=== PATIENT | male | born 1960 | race Caucasian/White ===

== ENCOUNTER 2017-12-07 15:45 | Emergency (ER) | payer OTHER ==
[~2017-12-07] VITALS: Ht 165.1 cm; Wt 59.9 kg
[2017-12-07 15:52] VITALS: BP 130/81
== END 2017-12-07 18:56 | disposition left against medical advice (07) ==
LOC: ER 15:51
DX: M79.604 Pain in right leg (principal); Z53.21 Procedure and treatment not carried out due to patient leaving prior to being seen by health care provider

== ENCOUNTER 2023-12-14 02:56 | Emergency (ER) | payer OTHER ==
[~2023-12-14] VITALS: Ht 167.6 cm; Wt 81.0 kg
[2023-12-14 02:56] VITALS: BP 194/105; RESP 16; O2SAT 96
[2023-12-14 03:09] VITALS: PULSE 87
== END 2023-12-14 08:17 | disposition left against medical advice (07) ==
LOC: EDBD 02:56 → ER 02:56
DX: S00.81XA Abrasion of other part of head, initial encounter (principal); F10.129 Alcohol abuse with intoxication, unspecified; Z88.6 Allergy status to analgesic agent; Z88.8 Allergy status to other drugs, medicaments and biological substances; Z79.899 Other long term (current) drug therapy; W18.39XA Other fall on same level, initial encounter; Y93.89 Activity, other specified; Y92.89 Other specified places as the place of occurrence of the external cause; Y99.8 Other external cause status; Y90.8 Blood alcohol level of 240 mg/100 ml or more
CPT/HCPCS: 70450; 70486; 72125; 93005

== ENCOUNTER 2025-03-19 17:04 | Inpatient (IN) | payer OTHER ==
[~2025-03-19] VITALS: Ht 165.1 cm; Wt 67.2 kg
[2025-03-19 18:09] LABS: Basophils # (auto) 0 10 ^3/uL (0-0.2); Basophils % (auto) 0.5 % (0.0-2.0); Eosinophils # (auto) 0.1 10 ^3/uL (0-0.8); Eosinophils % (auto) 1.5 % (0.0-7.0); Hematocrit 46.7 % (41.0-53.0); Hemoglobin 16.2 g/dL (13.5-17.5); Lymphocytes # (auto) 2.2 10 ^3/uL (0.4-5.4); Lymphocytes % (auto) 31.5 % (10.0-50.0); Mean Corpuscular Hemoglobin 33.1 pg (28.0-32.0); Mean Corpuscular Hgb Conc. 34.6 g/dL (32.0-36.0); Mean Corpuscular Volume 95.6 fL (80.0-100.0); Monocytes # (auto) 0.5 10 ^3/uL (0-1.3); Monocytes % (auto) 7.4 % (0.0-12.0); Neutrophils # (auto) 4.1 10 ^3/uL (1.6-8.6); Neutrophils % (auto) 59.1 % (37.0-80.0); Nucleated Red Blood Cells % 0.1 %; Platelet Count (auto) 263 10^3/uL (140-450); Red Blood Cells 4.89 10^6/uL (4.5-5.90); Red Cell Distribution Width 13.7 % (11.8-14.3); White Blood Cell 6.9 10^3/uL (4.4-10.8)
[2025-03-19 18:15] LABS: Alkaline Phosphatase 94 U/L (46-116); Anion Gap 10 (5-15); Aspartate Aminotransferase 23 U/L (13-40); BUN/Creatinine Ratio 9.3 (10.0-20.0); Blood Alcohol 241.5 mg/dL (<10); Blood Urea Nitrogen 10 mg/dL (9-23); Calcium 9.5 mg/dL (8.7-10.4); Carbon Dioxide 23 mmol/L (20-31); Sodium 141 mmol/L (136-145); Total Protein 7.4 g/dL (5.7-8.2)
--- NOTE | 2025-03-19 18:21 | DVH ---
CHEST RADIOGRAPH Indication: cp Technique: Single frontal view of the chest was obtained Comparison: None FINDINGS: Lungs: No focal consolidation. Pleura: No effusion. No pneumothorax. Cardiomediastinal contours: Unremarkable Bones: No acute osseous abnormality. IMPRESSION: 1. No acute cardiopulmonary disease.
[2025-03-19 18:31] LABS: Alanine Aminotransferase 40 U/L (7-40); Albumin 4.8 g/dL (3.2-4.8); Bilirubin, Total 0.3 mg/dL (0.2-1.0); Chloride 108 mmol/L (98-107); Glucose 120 mg/dL (74-106); Potassium 3.3 mmol/L (3.5-5.1)
--- NOTE | 2025-03-19 18:52 | ED.PDOC ---
HPI Comments 64-year-old male with a history of hypertension, dyslipidemia, chronic back pain and tobacco use brought in by EMS complaining of chest pain intermittently. Patient can not state how long the chest pain has been going on, but he acknowledges that it has been present intermittently at least all day today. Pain is described as pressure-like, constant, localized to the retrosternal area. He denies any associated nausea, vomiting, diaphoresis or edema. He does state he is chronically short of breath. He states paramedics gave him p.o. aspirin, which relieved the pain. Chief Complaint: Chest Pain Time Seen by MD: 18:30 Primary Care Provider: UNKNOWN Reviewed Notes: Nurses Notes, Tin Plater Notes, Medications, Allergies Allergies: Coded Allergies: Ibuprofen (Verified Allergy, Unknown, 12/07/17) Naproxen (Verified Allergy, Unknown, 12/07/17) Information Source: Patient Mode of Arrival: EMS Severity: Moderate Timing: Hours Duration: Since onset, Hours Prehospital treatment: None Location: Chest (L) Radiation: No Radiation Quality: Aching Onset: At Rest Cardiac Risk Factors: Smoker, Hyperlipidemia, HTN PE Risk Factors: None History of: None Associated Signs and Symptoms: None Past Medical History PAST MEDICAL HISTORY: COPD, High Lipids, HTN Surgical History: Denies all surgeries Family History Family History: Reviewed,noncontributory to illness, Unknown Social History Smoker: Cigarettes Alcohol: Denies ETOH Use Drugs: Denies Drug Use Lives In: Home Constitutional: denies: chills, diaphoresis, fatigue, fever, malaise, sweats, weakness, others EENTM: denies: blurred vision, double vision, ear bleeding, ear discharge, ear drainage, ear pain, ear ringing, eye pain, eye redness, hearing loss, mouth pain, mouth swelling, nasal discharge, nose bleeding, nose congestion, nose pain, photophobia, tearing, throat pain, throat swelling, voice changes, others Respiratory: denies: cough, hemoptysis, orthopnea, SOB at rest, shortness of breath, SOB with excertion, stridor, wheezing, others Cardiovascular: reports: chest pain; denies: dizzy spells, diaphoresis, Dyspnea on exertion, edema, irregular heart beat, left arm pain, lightheadedness, palpitations, PND, syncope, others Gastrointestinal: denies: abdomen distended, abdominal pain, blood streaked bowels, constipated, diarrhea, dysphagia, difficulty swallowing, hematemesis, melena, nausea, poor appetite, poor fluid intake, rectal bleeding, rectal pain, vomiting, others Genitourinary: denies: burning, dysuria, flank pain, frequency, hematuria, incontinence, penile discharge, penile sore, pain, testicle pain, testicle swelling, urgency, others Neurological: denies: dizziness, fainting, headache, left sided numbness, left sided weakness, numbness, paresthesia, pre-existing deficit, right sided numbness, right sided weakness, seizure, speech problems, tingling, tremors, weakness, others Musculoskeletal: denies: back pain, gout, joint pain, joint swelling, muscle pain, muscle stiffness, neck pain, others Integumetry: denies: bruises, change in color, change in hair/nails, dryness, laceration, lesions, lumps, rash, wounds, others Allergic/Immunocompromised: denies: Difficulty Healing, Frequent Infections, Hives, Itching, others Hematologic/Lymphatic: denies: anemia, blood clots, easy bleeding, easy bruising, swollen glands, others Endocrine: denies: excessive hunger, excessive sweating, excessive thirst, excessive urination, flushing, intolerance to cold, intolerance to heat, unexplained weight gain, unexplained weight loss, others Psychiatric: denies: anxiety, bipolar disorder, depression, hopeless, panic disorder, schizophrenia, sleepless, suicidal, others All Other Systems: Reviewed and Negative Physical Exam General Appearance: No Apparent Distress HEENT: Other (Pupils and face symmetric. Moist mucous membranes.) Neck: Full Range of Motion, Normal Inspection Respiratory: Lungs Clear, No Accessory Muscle Use, No Respiratory Distress, Normal Breath Sounds Cardiovascular: No Edema, No JVD, Regular Rate/Rhythm Breast Exam: Deferred Gastrointestinal: Non Tender, Soft Genitalia: Deferred Pelvic: Deferred Rectal: Deferred Extremities: Normal inspection, Normal range of motion, Non-tender, No pedal edema Musculoskeletal : Apperance: Normal Neurologic: Alert (Oriented x4), Normal Affect, Normal Mood, Other (Ambulatory without difficulty) Cerebellar Function: NOT DONE Reflexes: NOT DONE Skin: Dry, Normal Color, Warm Lymphatic: NOT DONE EKG EKG : Comments Sinus rhythm, rate 97, normal intervals, normal axis, normal QRS, nonspecific T changes. Was a procedure done? Was a procedure done?: No CP Differential Dx Differential Diagnosis: Angina, Anxiety / Panic Attack, Heart Failure, NE, Pulmonary Embolus Differential Diagnosis: Aortic dissection, Chest Wall Pain, Esophageal reflux/spasm, Gastritis, Pericarditis, Pneumonia, Pneumothorax X-Ray, Labs, Meds, VS Vital Signs Date Time Temp Pulse Resp B/P (MAP) Pulse Ox O2 Delivery O2 Flow Rate FiO2 03/19/25 23:32 97.3 74 14 165/99 (121) 92 97.3 03/19/25 19:40 98.2 84 14 160/88 (112) 92 98.2 03/19/25 17:09 97 03/19/25 17:05 97.8 100 20 152/101 (118) 98 97.8 Lab Test 03/19/25 18:14 03/19/25 17:17 Range/Units Troponin I High Sensitivity 7 6 </=54 ng/L White Blood Count 6.9 4.4-10.8 10^3/uL Red Blood Count 4.89 4.5-5.90 10^6/uL Hemoglobin 16.2 13.5-17.5 g/dL Hematocrit 46.7 41.0-53.0 % Mean Corpuscular Volume 95.6 80.0-100.0 fL Mean Corpuscular Hemoglobin 33.1 H 28.0-32.0 pg Mean Corpuscular Hemoglobin Concent 34.6 32.0-36.0 g/dL Red Cell Distribution Width 13.7 11.8-14.3 % Platelet Count 263 140-450 10^3/uL Mean Platelet Volume 8.1 6.9-10.8 fL Neutrophils (%) (Auto) 59.1 37.0-80.0 % Lymphocytes (%) (Auto) 31.5 10.0-50.0 % Monocytes (%) (Auto) 7.4 0.0-12.0 % Eosinophils (%) (Auto) 1.5 0.0-7.0 % Basophils (%) (Auto) 0.5 0.0-2.0 % Neutrophils # (Auto) 4.1 1.6-8.6 10 ^3/uL Lymphocytes # (Auto) 2.2 0.4-5.4 10 ^3/uL Monocytes # (Auto) 0.5 0-1.3 10 ^3/uL Eosinophils # (Auto) 0.1 0-0.8 10 ^3/uL Basophils # (Auto) 0 0-0.2 10 ^3/uL Nucleated Red Blood Cells 0.1 % Sodium Level 141 136-145 mmol/L Potassium Level 3.3 L 3.5-5.1 mmol/L Chloride Level 108 H 98-107 mmol/L Carbon Dioxide Level 23 20-31 mmol/L Anion Gap 10 5-15 Blood Urea Nitrogen 10 9-23 mg/dL Creatinine 1.07 0.700-1.30 mg/dL Glomerular Filtration Rate Calc 77 >90 mL/min BUN/Creatinine Ratio 9.3 L 10.0-20.0 Serum Glucose 120 H 74-106 mg/dL Calcium Level 9.5 8.7-10.4 mg/dL Total Bilirubin 0.3 0.2-1.0 mg/dL Aspartate Amino Transferase (AST) 23 13-40 U/L Alanine Aminotransferase (ALT) 40 7-40 U/L Alkaline Phosphatase 94 46-116 U/L B-Type Natriuretic Peptide 17.52 0-100 pg/mL Total Protein 7.4 5.7-8.2 g/dL Albumin 4.8 3.2-4.8 g/dL Lipase 40 12-53 U/L Plasma/Serum Blood Alcohol 241.5 H <10 mg/dL Current Medications Medications (Trade) Dose Ordered Sig/Yessica Route Start Time Stop Time Status Last Admin Acetaminophen/ Hydrocodone Bitart ([place]tree 5/325MG Tab) 1 tab ONCE ONCE PO 03/19/25 17:45 03/19/25 17:46 DC 03/19/25 20:02 Ondansetron HCl (Zofran) 4 mg ONCE ONCE IV 03/19/25 17:45 03/19/25 17:46 DC 03/19/25 19:56 Pantoprazole Sodium (Protonix) 40 mg ONCE ONCE IV 03/19/25 17:45 03/19/25 17:46 DC 03/19/25 19:54 PROCEDURE(s): CXRP - CHEST PORTABLE REASON: cp ORDER NUMBER(s): [id number], ACCESSION NUMBER(s): [id number] CHEST RADIOGRAPH Indication: cp Technique: Single frontal view of the chest was obtained Comparison: None FINDINGS: Lungs: No focal consolidation. Pleura: No effusion. No pneumothorax. Cardiomediastinal contours: Unremarkable Bones: No acute osseous abnormality. IMPRESSION: 1. No acute cardiopulmonary disease. X-Ray, Labs, Meds, VS Comment 64-year-old male with a history of hypertension, dyslipidemia, COPD and chronic back pain complaining of chest pain Vitals remarkable for BP 152/101 Exam unremarkable Rhythm strip independently interpreted by me: Sinus rhythm, rate 97, no ectopy. Chest x-ray unremarkable CBC unremarkable, metabolic panel remarkable for potassium 3.3, lipase normal, BNP and 2 serial troponins unremarkable. ETOH level 241.5 Patient treated with the following in the ED: Crabtree 5/325 mg p.o., Zofran 4 mg IV, Protonix 40 mg IV, effervescent potassium 50 mEq p.o. On re-evaluation, patient is pain-free with stable vitals. Plan is to admit the patient for Cardiology evaluation. Time of 1ST Reevaluation: 19:00 Reevaluation 1ST: Unchanged Patient Education/Counseling: Diagnosis, Treatment, Prognosis Family Education/Counseling: No Family Present Departure 1 Departure Time of Disposition: 23:56 Impression: Primary Impression: Chest pain with high risk for cardiac etiology Additional Impressions: Hypokalemia Alcohol intoxication Qualified Codes: F10.929 - Alcohol use, unspecified with intoxication, un specified Disposition: 09 ADMITTED INPATIENT Admit to: [facility] Condition: Guarded Critical Care Note Critical Care Time?: No Stability Stability form required: No Heart Score Heart Score: Heart Score Response (Comments) Value History Highly Suspicious 2 EKG Repolarization Disturb 1 Age 45-64 1 Risk Factors >3 or Hx ASHD 2 Troponin Normal limit 0 Total 6 I personally scribed for ADDIE MANLEY MD ([email or web address]) on 03/19/25 at 18:52. Electronically submitted by Donald Pina ([email or web address]). ADDIE MANLEY MD Mar 19, 2025 18:52
--- NOTE | 2025-03-19 18:54 | ECG ---
[facility] Test Date: 2025-03-19 Test Time: 17:09:38 Pat Name: JOY OMER Department: ED Room: Gender: M Systems Auditor: eva : 1960 Requested By: ADDIE GOODWIN Order Number: [id number] Reading MD: Measurements Intervals [place] Rate: 97 P: 76 MN: 171 QRS: 55 QRSD: 91 T: 75 QT: 352 QTc: 447 Interpretive Statements Sinus rhythm Please click the below link to view image of tracing.
[2025-03-19 18:56] LABS: Lipase 40 U/L (12-53)
[2025-03-19] MEDS: PANTOPRAZOLE 40 MG/10 ML VIAL INJ IV ONE (19:54)
[2025-03-19] MEDS: ONDANSETRON HCL 4 MG/2 ML VIAL IV ONE (19:56)
[2025-03-19] MEDS: HYDROcodone-ACET 5/325MG TAB PO ONE (20:02)
[2025-03-20] MEDS: POTASSIUM EFFERVESENT TAB 25 MEQ PO ONE (00:13)
[2025-03-20 00:20] LABS: Urine Bacteria None Seen /hpf (None Seen)
[2025-03-20 00:30] LABS: Urine Blood Negative /uL (Negative); Urine Clarity Clear (Clear); Urine Color Yellow (Yellow); Urine Hyaline Cast FEW /lpf (0 - 2); Urine Mucus FEW (None Seen); Urine Protein, UAD 1+ (Negative); Urine Specific Gravity 1.021 (1.001-1.035); Urine Squamous Epithelial Cell FEW /hpf (<5); Urine Urobilinogen Normal (Negative); Urine WBC 2 /HPF (0-3)
[2025-03-20 01:00] VITALS: PULSE 81; RESP 23; O2SAT 94
[2025-03-20] MEDS ORDERED: ACETAMINOPHEN 325 MG TAB PO PRN (02:45)
[2025-03-20] MEDS ORDERED: ONDANSETRON HCL 4 MG/2 ML VIAL IV PRN (02:45)
[2025-03-20] MEDS ORDERED: NITROGLYCERIN 0.4 MG SL TAB SL PRN (02:45)
[2025-03-20] MEDS ORDERED: MORPHINE SULFATE INJ 2 MG/ml SYRG IV PRN ×2 (02:45)
--- NOTE | 2025-03-20 03:25 | DVHHPRES ---
History of Present Illness Resident Creating Document: VISHAL SINCLAIR RESIDENT History of Present Illness Jose Purvis is a 64-year-old male patient who presents to ED brought by EMS with chief complaint of nonradiating retrosternal oppressive chest pain which started in functional class IV (he was drinking vodka while he was watching TV) pain started at 5:00 p.m. which prompted him to call the EMS, pain was really once he received aspirin (pain only lasted for 30 minutes). Denies fever, chills, palpitation, syncope, dyspnea, nausea, vomiting, diarrhea, sick contacts, bleeding, recent travel and motor or sensory deficits. Past medical history: Hypertension, dyslipidemia, COPD with no home oxygen, melanoma status postop, pneumothorax status post chest tube in Surgical history: Melanoma resection, chest tube placement Family history: Mother had tumors in abdomen (does not know kind of tumor) Social history: Lives in [place] alone (next of kin would be Donna Gerber who is a friend). Active smoker (approximately 20 pack-year history of smoking). Drinks2 times a week, each time he drinks three pt of vodka. Ex methamphetamine abuse, he quit approximately 10 years ago. Denies any other drug abuse. Allergies: Tomatoes, peanuts, Naproxen Home medication: For blood pressure, cholesterol, and he takes ibuprofen (does not recall name of medication) Patient seen and examined at bedside. Currently has no new complaints. No chest pain since EMS evaluated him at home. Past Medical History Per HPI Past Surgical History Per HPI Family History Per HPI Past Social History Per HPI Review of Systems Review of Systems Per HPI Allergies: Coded Allergies: Ibuprofen (Verified Allergy, Unknown, 12/07/17) Naproxen (Verified Allergy, Unknown, 12/07/17) Medications Current Medications Medications Dose Ordered Sig/Yessica Route Start Time Stop Time Status Last Admin Dose Admin Acetaminophen 650 mg Q6HP PRN PO 03/20/25 02:45 Ondansetron HCl 4 mg Q4HP PRN IV 03/20/25 02:45 Morphine Sulfate 2 mg Q4HPRN PRN IV 03/20/25 02:45 Enoxaparin Sodium 40 mg DAILY SC 03/20/25 10:00 Nitroglycerin 0.4 mg Q5MINP PRN SL 03/20/25 02:45 Morphine Sulfate 2 mg Q30M PRN IV 03/20/25 02:45 Aspirin 81 mg DAILY PO 03/20/25 10:00 UNV Atorvastatin Calcium 40 mg HS PO 03/20/25 22:00 Pantoprazole Sodium 40 mg DAILY IV 03/20/25 10:00 Valsartan 80 mg DAILY PO 03/20/25 10:00 Exam Vital Signs Vital Signs Date Time Temp Pulse Resp B/P (MAP) Pulse Ox O2 Delivery O2 Flow Rate FiO2 03/20/25 01:00 81 23 94 Room Air* 0 21 03/20/25 01:00 98.4 141/74 (96) 98.4 Exam Patient lying in bed, in no acute distress General: Lucid, afebrile, mucosae are moist Cardiovascular: Distant S1 and S2. No murmurs, gallops or rubs Respiratory: Normal ventilation mechanics. Clear lung sounds on auscultation Abdomen: Soft, nontender, no organomegaly, normal bowel sounds MSK/skin: Mobilizes 4 limbs. Skin is dry and warm Neurological: Oriented in 3 spheres. No motor no sensitive deficits. Pupils are isocoric and reactive Labs/Xrays Labs Test 03/19/25 23:15 03/19/25 18:14 03/19/25 17:17 Range/Units Urine Color Yellow Yellow Urine Clarity Clear Clear Urine pH 6.0 5.0-9.0 Urine Specific [place] 1.021 1.001-1.035 Urine Protein 1+ H Negative Urine Ketones Negative Negative Urine Blood Negative Negative /uL Urine Nitrite Negative Negative Urine Bilirubin Negative Negative Urine Urobilinogen Normal Negative mg/dL Urine Leukocyte Esterase Negative Negative /uL Urine RBC <1 0 - 3 /hpf Urine Microscopic WBC 2 0-3 /HPF Urine Squamous Epithelial Cells Few <5 /hpf Urine Bacteria None seen None Seen /hpf Urine Hyaline Casts Few 0 - 2 /lpf Urine Mucus Few None Seen Urine Glucose Normal Normal mg/dL Troponin I High Sensitivity 7 </=54 ng/L White Blood Count 6.9 4.4-10.8 10^3/uL Red Blood Count 4.89 4.5-5.90 10^6/uL Hemoglobin 16.2 13.5-17.5 g/dL Hematocrit 46.7 41.0-53.0 % Mean Corpuscular Volume 95.6 80.0-100.0 fL Mean Corpuscular Hemoglobin 33.1 H 28.0-32.0 pg Mean Corpuscular Hemoglobin Concent 34.6 32.0-36.0 g/dL Red Cell Distribution Width 13.7 11.8-14.3 % Platelet Count 263 140-450 10^3/uL Mean Platelet Volume 8.1 6.9-10.8 fL Neutrophils (%) (Auto) 59.1 37.0-80.0 % Lymphocytes (%) (Auto) 31.5 10.0-50.0 % Monocytes (%) (Auto) 7.4 0.0-12.0 % Eosinophils (%) (Auto) 1.5 0.0-7.0 % Basophils (%) (Auto) 0.5 0.0-2.0 % Neutrophils # (Auto) 4.1 1.6-8.6 10 ^3/uL Lymphocytes # (Auto) 2.2 0.4-5.4 10 ^3/uL Monocytes # (Auto) 0.5 0-1.3 10 ^3/uL Eosinophils # (Auto) 0.1 0-0.8 10 ^3/uL Basophils # (Auto) 0 0-0.2 10 ^3/uL Nucleated Red Blood Cells 0.1 % Sodium Level 141 136-145 mmol/L Potassium Level 3.3 L 3.5-5.1 mmol/L Chloride Level 108 H 98-107 mmol/L Carbon Dioxide Level 23 20-31 mmol/L Anion Gap 10 5-15 Blood Urea Nitrogen 10 9-23 mg/dL Creatinine 1.07 0.700-1.30 mg/dL Glomerular Filtration Rate Calc 77 >90 mL/min BUN/Creatinine Ratio 9.3 L 10.0-20.0 Serum Glucose 120 H 74-106 mg/dL Calcium Level 9.5 8.7-10.4 mg/dL Total Bilirubin 0.3 0.2-1.0 mg/dL Aspartate Amino Transferase (AST) 23 13-40 U/L Alanine Aminotransferase (ALT) 40 7-40 U/L Alkaline Phosphatase 94 46-116 U/L B-Type Natriuretic Peptide 17.52 0-100 pg/mL Total Protein 7.4 5.7-8.2 g/dL Albumin 4.8 3.2-4.8 g/dL Lipase 40 12-53 U/L Plasma/Serum Blood Alcohol 241.5 H <10 mg/dL Assessment/Plan Assessment/Plan Assessment: Unstable angina Hypertension Dyslipidemia COPD in no exacerbation History of melanoma status post resection History of spontaneous pneumothorax Polysubstance abuse History of methamphetamine abuse Plan: EKG shows normal sinus rhythm with no ST alteration, troponin x2 negative, pain is cardiac. Planning on completing echocardiogram in the a.m.. Patient will be admitted to telemetry Counseled on tobacco and alcohol abuse cessation. Ordered UDS (per patient he has not consumed methamphetamine for the past 10 years) Patient does not recall his home medication for hypertension and dyslipidemia, started him on valsartan and atorvastatin. We will modify depending on ejection fraction. Patient currently on aspirin and atorvastatin. Goals of care discussed with patient for over 18 minutes: Full code status Discussed plan with Dr. Greenberg, patient and nurses: We will complete echocardiogram to evaluate ejection fraction and abnormal wall motility. Evaluate need of stress test. Plan discussed with: Patient, Other (Nurses) My Orders Orders - VISHAL SINCLAIR RESIDENT Procedure Category Date Status Time Admit ADMIT 03/20/25 Transmitted 02:42 Code Status CODE 03/20/25 Transmitted 02:42 Vital Signs SMOOTH 03/20/25 In Process 02:42 Review Orders With SMOOTH 03/20/25 In Process Adm.Md 02:42 Npo (Nothing By DIET 03/20/25 Transmitted Mouth) Diet Breakfast Acetaminophen Tablet PHA 03/20/25 In Process (Tylenol Tablet) 02:45 Notify Md Of Changes SMOOTH 03/20/25 In Process From Base 02:42 Advance Directive SMOOTH 03/20/25 In Process 02:42 Echo 2d Mode Cardiac US 03/20/25 Logged DOP 02:42 Patient Condition ORDERS 03/20/25 Transmitted 02:42 Allergies SMOOTH 03/20/25 In Process 02:42 Ondansetron Hcl PHA 03/20/25 In Process (Zofran) 02:45 Morphine Sulfate PHA 03/20/25 In Process Injection 02:45 Enoxaparin Sodium PHA 03/20/25 In Process (Lovenox) 10:00 Nitroglycerin PHA 03/20/25 In Process Sublingual (Ntrostat 02:45 Morphine Sulfate PHA 03/20/25 In Process Injection 02:45 Oxygen By Nasal RT 03/20/25 Transmitted Cannula 02:42 Stat Ekg For Chest SMOOTH 03/20/25 In Process Pain 02:42 Notify Of Changes SMOOTH 03/20/25 In Process From Base 02:42 Compliance Administrator For [facility] 03/20/25 In Process 24 Hours 02:42 Emergency Dysrhythmia [facility] 03/20/25 In Process Protocol 02:42 Rhythm Strips Once [facility] 03/20/25 In Process Every Shift 02:42 Aspirin Tablet PHA 03/20/25 Pending 10:00 Atorvastatin (Lipitor) PHA 03/20/25 In Process 22:00 Pantoprazole PHA 03/20/25 In Process (Protonix) 10:00 Vitamin D, 25-Hydroxy LAB 03/20/25 Logged 02:42 Vitamin B12 LAB 03/20/25 Logged 02:42 Thyroid Stimulating LAB 03/20/25 Logged Hormone 02:42 Phosphorus LAB 03/20/25 Logged 02:42 Magnesium LAB 03/20/25 Logged 02:42 Lipid Panel LAB 03/20/25 Logged 02:42 Hemoglobin A1c LAB 03/20/25 Logged 02:42 Drug Screen LAB 03/20/25 In Process 02:42 Complete Blood Count LAB 03/20/25 Logged 04:00 Valsartan (Diovan) PHA 03/20/25 In Process 10:00 Comprehensive LAB 03/20/25 Logged Metabolic Panel 04:00 Date of Service: Mar 20, 2025 Billing Provider: PANTERA GREENBERG MD Common Visit Codes: [id number] INP/OBS CARE (HIGH) VISHAL SINCLAIR RESIDENT Mar 20, 2025 03:25 PANTERA GREENBERG MD Mar 21, 2025 11:39
[2025-03-20 04:32] LABS: Amphetamine Screen, Urine Neg (NEGATIVE); Opiate Scree,Urine Pos (NEGATIVE)
[2025-03-20 04:33] LABS: Barbiturate Scree,Urine Neg (NEGATIVE); Benzodiazephine Screen, Urine Neg (NEGATIVE); Cocaine Screen, Urine Neg (NEGATIVE); Phencyclidine Screen, Urine Neg (NEGATIVE)
[2025-03-20 04:34] LABS: Cannabinoid Screen, Urine Neg (NEGATIVE)
[2025-03-20 05:00] VITALS: BP 186/99; PULSE 84; RESP 18; TEMP 97.9; O2SAT 91
[2025-03-20 05:19] VITALS: BP 186/99; PULSE 84; RESP 16; RESP 18; TEMP 97.7; O2SAT 91
[2025-03-20] MEDS: VALSARTAN 80 MG TAB PO ONE (05:38)
[2025-03-20] MEDS: ATORVASTATIN 20 MG TAB PO ONE (05:40)
[2025-03-20] MEDS ORDERED: BUPR10DI TOP (05:46)
[2025-03-20] MEDS ORDERED: IBUP-1455 PO (05:46)
[2025-03-20] MEDS ORDERED: ATOR10TA52 PO (05:46)
[2025-03-20] MEDS ORDERED: LOS25T PO (05:46)
[2025-03-20] MEDS ORDERED: HYDR-4069 PO (05:46)
[2025-03-20 06:38] LABS: Basophils # (auto) 0.1 10 ^3/uL (0-0.2); Basophils % (auto) 0.8 % (0.0-2.0); Eosinophils # (auto) 0.1 10 ^3/uL (0-0.8); Eosinophils % (auto) 1.3 % (0.0-7.0); Hematocrit 46.3 % (41.0-53.0); Hemoglobin 15.7 g/dL (13.5-17.5); Lymphocytes # (auto) 1.6 10 ^3/uL (0.4-5.4); Lymphocytes % (auto) 24.6 % (10.0-50.0); Mean Corpuscular Hemoglobin 32.4 pg (28.0-32.0); Mean Corpuscular Hgb Conc. 33.9 g/dL (32.0-36.0); Mean Corpuscular Volume 95.3 fL (80.0-100.0); Monocytes # (auto) 0.5 10 ^3/uL (0-1.3); Monocytes % (auto) 7.3 % (0.0-12.0); Neutrophils # (auto) 4.2 10 ^3/uL (1.6-8.6); Nucleated Red Blood Cells % 0.5 %; Platelet Count (auto) 259 10^3/uL (140-450); Red Blood Cells 4.85 10^6/uL (4.5-5.90); Red Cell Distribution Width 13.7 % (11.8-14.3); White Blood Cell 6.3 10^3/uL (4.4-10.8)
[2025-03-20 06:53] LABS: Alanine Aminotransferase 36 U/L (7-40); Albumin 4.7 g/dL (3.2-4.8); Alkaline Phosphatase 92 U/L (46-116); Anion Gap 8 (5-15); Aspartate Aminotransferase 20 U/L (13-40); Bilirubin, Total 0.5 mg/dL (0.2-1.0); Blood Urea Nitrogen 13 mg/dL (9-23); Calcium 9.5 mg/dL (8.7-10.4); Carbon Dioxide 28 mmol/L (20-31); Chloride 105 mmol/L (98-107); Cholesterol 189 mg/dL (< 200); HDL Cholesterol 42 mg/dL (40-59); Magnesium 1.9 mg/dL (1.6-2.6); Potassium 3.7 mmol/L (3.5-5.1); Sodium 141 mmol/L (136-145); Total Protein 7.2 g/dL (5.7-8.2)
[2025-03-20 06:57] LABS: Glucose 118 mg/dL (74-106); LDL Cholesterol 117 mg/dL (< 100); Triglycerides 246 mg/dL (< 150)
[2025-03-20] MEDS: PANTOPRAZOLE 40 MG/10 ML VIAL INJ IV SCH (09:22)
[2025-03-20] MEDS: ENOXAPARIN SOD 40 MG/0.4 ML SYRINGE SC SCH (09:22)
[2025-03-20] MEDS: VALSARTAN 80 MG TAB PO SCH (09:23)
[2025-03-20] MEDS ORDERED: ASPirin 81 mg TAB PO SCH (10:00)
[2025-03-20] MEDS ORDERED: ATORVASTATIN 20 MG TAB PO SCH (22:00)
== END 2025-03-20 11:20 | disposition left against medical advice (07) | DRG 198 ==
LOC: ER 17:04 → EDBD 17:04 → EDUNIT# 17:04 → OVERFLOW 03-20 02:42 → TELE-CENTR 03-20 05:14
PROVIDERS: ADMIT Nurse Practitioner; ATTEND Nurse Practitioner
DX: I20.0 Unstable angina (principal); E87.6 Hypokalemia; J44.9 Chronic obstructive pulmonary disease, unspecified; F10.129 Alcohol abuse with intoxication, unspecified; F17.210 Nicotine dependence, cigarettes, uncomplicated; F19.10 Other psychoactive substance abuse, uncomplicated; I10 Essential (primary) hypertension; Z88.8 Allergy status to other drugs, medicaments and biological substances; Z53.29 Procedure and treatment not carried out because of patient's decision for other reasons
CPT/HCPCS: 36415; 71045; 80053; 80061; 80307; 80320; 81001; 82306; 82607; 83036; 83690; 83735; 83880; 84100; 84443; 84484; 85025; 93005; 96374; 96375; G0378; J2405; J2470

== ENCOUNTER 2025-09-13 04:28 | Emergency (ER) | payer OTHER ==
[~2025-09-13] VITALS: Ht 165.1 cm; Wt 68.0 kg
[~2025-09-13 04:28] MED LIST: ATOR10TA52 PO; BUPR10DI TOP; HYDR-4069 PO; IBUP-1455 PO; LOS25T PO
--- NOTE | 2025-09-13 04:45 | ED.PDOC ---
History of Present Illness HPI Comments 65-year-old male who came to ER via EMS for high blood pressure. Patient has history of hypertension, he has been having difficulty controlling his blood pressure. Patient complaining of headaches, his blood pressure was elevated at systolic over 200. Denies any chest pains or shortness of breath. Upon arrival of the ER blood pressure was systolic 170s Chief Complaint: High blood pressure Time Seen by MD: 04:44 Primary Care Provider: UNKNOWN Reviewed Notes: Nurses Notes Allergies: Coded Allergies: Ibuprofen (Verified Allergy, Unknown, 12/07/17) Naproxen (Verified Allergy, Unknown, 12/07/17) Home Meds Active Scripts Amlodipine Besylate (Amlodipine Besylate) 5 Mg Tab, 1 TAB PO DAILY for 90 Days, #90 TAB 1 Refill Prov:BJ MORGAN MD 09/13/25 Reported Medications Buprenorphine (BUTRANS) 10 Mcg/Hr Dis, 1 PATCH TOP DAILY 03/20/25 Atorvastatin Calcium (ATORVASTATIN CALCIUM) 10 Mg Tab, 1 TAB PO DAILY 03/20/25 Losartan Potassium (Losartan Potassium) 25 Mg Tab, 1 TAB PO DAILY 03/20/25 Hydrocodone-Acetaminophen (Hydrocodone/Acetaminophen 7.5-325 mg) 1 Tab Tab, 1 TAB PO TID PRN for BREAKTHROUGH PAIN 03/20/25 Ibuprofen Micronized (Ibuprofen) 800 Mg Tab, 1 TAB PO 03/20/25 Information Source: Patient Mode of Arrival: EMS Severity: Mild Timing: Minutes Duration: Since onset Past Medical History PAST MEDICAL HISTORY: COPD, High Lipids, HTN Surgical History: Denies all surgeries Family History Family History: Reviewed,noncontributory to illness, Unknown Social History Smoker: Cigarettes Alcohol: Heavy Drugs: Denies Drug Use Lives In: Home Constitutional: denies: chills, diaphoresis, fatigue, fever, malaise, sweats, weakness, others EENTM: denies: blurred vision, double vision, ear bleeding, ear discharge, ear drainage, ear pain, ear ringing, eye pain, eye redness, hearing loss, mouth pain, mouth swelling, nasal discharge, nose bleeding, nose congestion, nose pain, photophobia, tearing, throat pain, throat swelling, voice changes, others Respiratory: denies: cough, hemoptysis, orthopnea, SOB at rest, shortness of breath, SOB with excertion, stridor, wheezing, others Cardiovascular: denies: chest pain, dizzy spells, diaphoresis, Dyspnea on exertion, edema, irregular heart beat, left arm pain, lightheadedness, palpitations, PND, syncope, others Gastrointestinal: denies: abdomen distended, abdominal pain, blood streaked bowels, constipated, diarrhea, dysphagia, difficulty swallowing, hematemesis, melena, nausea, poor appetite, poor fluid intake, rectal bleeding, rectal pain, vomiting, others Genitourinary: denies: burning, dysuria, flank pain, frequency, hematuria, incontinence, penile discharge, penile sore, pain, testicle pain, testicle s welling, urgency, others Neurological: reports: headache; denies: dizziness, fainting, left sided numbness, left sided weakness, numbness, paresthesia, pre-existing deficit, right sided numbness, right sided weakness, seizure, speech problems, tingling, tremors, weakness, others Musculoskeletal: denies: back pain, gout, joint pain, joint swelling, muscle pain, muscle stiffness, neck pain, others Integumetry: denies: bruises, change in color, change in hair/nails, dryness, laceration, lesions, lumps, rash, wounds, others Allergic/Immunocompromised: denies: Difficulty Healing, Frequent Infections, Hives, Itching, others Hematologic/Lymphatic: denies: anemia, blood clots, easy bleeding, easy bruising, swollen glands, others Endocrine: denies: excessive hunger, excessive sweating, excessive thirst, excessive urination, flushing, intolerance to cold, intolerance to heat, unexplained weight gain, unexplained weight loss, others Psychiatric: denies: anxiety, bipolar disorder, depression, hopeless, panic disorder, schizophrenia, sleepless, suicidal, others Physical Exam General Appearance: No Apparent Distress, Normal HEENT: Normal ENT Inspection, Pharynx Normal, TMs Normal Neck: Full Range of Motion, Non-Tender, Normal, Normal Inspection Respiratory: Chest Non-Tender, Lungs Clear, No Accessory Muscle Use, No Respiratory Distress, Normal Breath Sounds Cardiovascular: No Edema, No JVD, No Murmur, No Gallop, Normal Peripheral Pulses, Regular Rate/Rhythm Breast Exam: Deferred Gastrointestinal: No Organomegaly, Non Tender, No Pulsatile Mass, Normal Bowel Sounds, Soft Genitalia: Deferred Pelvic: Deferred Rectal: Deferred Extremities: No calf tenderness, Normal capillary refill, Normal inspection, Normal range of motion, Non-tender, No pedal edema Musculoskeletal : Apperance: Normal Neurologic: Alert, telephone technician II-XII nml as Tested, No Motor Deficits, Normal Affect, Normal Mood, No Sensory Deficits Cerebellar Function: Normal Reflexes: Normal Skin: Dry, Normal Color, Warm Lymphatic: No Adenopathy Was a procedure done? Was a procedure done?: No Differential Dx Considerations may include: Hypertensive urgency, alcohol intoxication, anxiety X-Ray, Labs, Meds, VS Vital Signs Date Time Temp Pulse Resp B/P (MAP) Pulse Ox O2 Delivery O2 Flow Rate FiO2 09/13/25 10:41 81 15 150/86 (107) 96 09/13/25 08:05 98.1 79 24 177/93 (121) 98 98.1 09/13/25 05:52 97.8 82 19 168/98 (121) 94 97.8 09/13/25 05:52 82 19 94 Room Air 09/13/25 05:50 168/98 09/13/25 04:30 98.1 94 16 174/96 97 98.1 Lab Test 09/13/25 09:44 09/13/25 07:34 09/13/25 06:38 Range/Units Troponin I High Sensitivity 5 5 4 </=54 ng/L White Blood Count 5.3 4.4-10.8 10^3/uL Red Blood Count 4.68 4.5-5.90 10^6/uL Hemoglobin 15.5 13.5-17.5 g/dL Hematocrit 45.5 41.0-53.0 % Mean Corpuscular Volume 97.2 80.0-100.0 fL Mean Corpuscular Hemoglobin 33.1 H 28.0-32.0 pg Mean Corpuscular Hemoglobin Concent 34.1 32.0-36.0 g/dL Red Cell Distribution Width 14.8 H 11.8-14.3 % Platelet Count 304 140-450 10^3/uL Mean Platelet Volume 8.3 6.9-10.8 fL Neutrophils (%) (Auto) 55.1 37.0-80.0 % Lymphocytes (%) (Auto) 34.2 10.0-50.0 % Monocytes (%) (Auto) 8.5 0.0-12.0 % Eosinophils (%) (Auto) 1.3 0.0-7.0 % Basophils (%) (Auto) 0.9 0.0-2.0 % Neutrophils # (Auto) 2.9 1.6-8.6 10 ^3/uL Lymphocytes # (Auto) 1.8 0.4-5.4 10 ^3/uL Monocytes # (Auto) 0.4 0-1.3 10 ^3/uL Eosinophils # (Auto) 0.1 0-0.8 10 ^3/uL Basophils # (Auto) 0 0-0.2 10 ^3/uL Nucleated Red Blood Cells 0.1 % Sodium Level 148 H 136-145 mmol/L Potassium Level 4.2 3.5-5.1 mmol/L Chloride Level 108 H 98-107 mmol/L Carbon Dioxide Level 32 H 20-31 mmol/L Anion Gap 8 5-15 Blood Urea Nitrogen 13 9-23 mg/dL Creatinine 0.94 0.700-1.30 mg/dL Glomerular Filtration Rate Calc 90 >90 mL/min BUN/Creatinine Ratio 13.8 10.0-20.0 Serum Glucose 113 H 74-106 mg/dL Calcium Level 9.8 8.7-10.4 mg/dL Total Bilirubin 0.3 0.2-1.0 mg/dL Aspartate Amino Transferase (AST) 50 H 13-40 U/L Alanine Aminotransferase (ALT) 73 H 7-40 U/L Alkaline Phosphatase 80 46-116 U/L Total Protein 7.9 5.7-8.2 g/dL Albumin 5.3 H 3.2-4.8 g/dL Plasma/Serum Blood Alcohol 166.5 H <10 mg/dL Current Medications Medications (Trade) Dose Ordered Sig/Yessica Route Start Time Stop Time Status Last Admin Lisinopril (Zestril Tablet) 20 mg ONCE ONCE PO 09/13/25 04:45 09/13/25 05:04 DC 09/13/25 05:50 Time of 1ST Reevaluation: 04:40 Reevaluation 1ST: Unchanged Patient Education/Counseling: Diagnosis, Treatment Family Education/Counseling: No Family Present SEPSIS Sepsis Screen Vital Signs Date Time Temp Pulse Resp B/P (MAP) Pulse Ox O2 Delivery O2 Flow Rate FiO2 09/13/25 10:41 81 15 150/86 (107) 96 09/13/25 08:05 98.1 79 24 177/93 (121) 98 98.1 09/13/25 05:52 97.8 82 19 168/98 (121) 94 97.8 09/13/25 05:52 82 19 94 Room Air 09/13/25 05:50 168/98 09/13/25 04:30 98.1 94 16 174/96 97 98.1 Laboratory Tests Test 09/13/25 06:38 White Blood Count 5.3 10^3/uL (4.4-10.8) Departure 1 Departure Time of Disposition: 06:00 Impression: Primary Impression: Alcohol intoxication Additional Impression: Hypertension Disposition: 01 HOME / SELF CARE / HOMELESS Condition: Stable e-Prescriptions Amlodipine Besylate (Amlodipine Besylate) 5 Mg Tab 1 TAB PO DAILY for 90 Days, #90 TAB 1 Refill Prov: BJ MORGAN MD 09/13/25 Discharged With: Self Critical Care Note Critical Care Time?: No Stability Stability form required: No Heart Score Heart Score: Heart Score Response (Comments) Value History N/A 0 EKG N/A 0 Age N/A 0 Risk Factors N/A 0 Troponin N/A 0 Total 0 I personally scribed for BJ MORGAN MD ([email or web address]) on 09/13/25 at 04:45. Electronically submitted by Hugo Gutierrez ([facility]). BJ MORGAN MD Sep 13, 2025 04:45
[2025-09-13] MEDS ORDERED: AMLO1TAB22 PO (05:50)
[2025-09-13] MEDS: LISINOPRIL 20 MG TAB PO ONE (05:50)
[2025-09-13 07:04] LABS: Hematocrit 45.5 % (41.0-53.0); Hemoglobin 15.5 g/dL (13.5-17.5); Mean Corpuscular Hemoglobin 33.1 pg (28.0-32.0); Mean Corpuscular Volume 97.2 fL (80.0-100.0); Nucleated Red Blood Cells % 0.1 %
[2025-09-13 07:19] LABS: Alkaline Phosphatase 80 U/L (46-116); Anion Gap 8 (5-15); BUN/Creatinine Ratio 13.8 (10.0-20.0); Blood Urea Nitrogen 13 mg/dL (9-23); Calcium 9.8 mg/dL (8.7-10.4); Potassium 4.2 mmol/L (3.5-5.1); Total Protein 7.9 g/dL (5.7-8.2)
[2025-09-13 07:28] LABS: Alanine Aminotransferase 73 U/L (7-40); Bilirubin, Total 0.3 mg/dL (0.2-1.0); Carbon Dioxide 32 mmol/L (20-31); Chloride 108 mmol/L (98-107); Glucose 113 mg/dL (74-106); Sodium 148 mmol/L (136-145)
[2025-09-13 07:29] LABS: Albumin 5.3 g/dL (3.2-4.8)
[2025-09-13 08:05] VITALS: TEMP 98.1
[2025-09-13 10:41] VITALS: BP 150/86; PULSE 81; RESP 15; O2SAT 96
--- NOTE | 2025-09-14 10:06 | ECG ---
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
== END 2025-09-13 10:42 | disposition home or self-care (01) ==
LOC: EDBD 04:28 → ER 04:28
DX: I10 Essential (primary) hypertension (principal); F10.129 Alcohol abuse with intoxication, unspecified; F17.210 Nicotine dependence, cigarettes, uncomplicated; J44.9 Chronic obstructive pulmonary disease, unspecified; E78.5 Hyperlipidemia, unspecified; Z79.899 Other long term (current) drug therapy; Z79.891 Long term (current) use of opiate analgesic; Z88.6 Allergy status to analgesic agent; Y90.6 Blood alcohol level of 120-199 mg/100 ml
CPT/HCPCS: 36415; 80053; 80320; 84484; 85025; 93005